=== PATIENT | female | born 1945 | race Asian ===

== ENCOUNTER 2019-05-22 20:34 | Emergency (ER) | payer MEDICARE, BC ==
[~2019-05-22] VITALS: Ht 142.2 cm; Wt 48.5 kg
--- NOTE | 2019-05-22 20:50 | NUR ---
PATIENT CAME TO ER BED 2 C/O SHORTNESS OF BREATH. PATIENT STATES THAT SHE HAS BEEN HAVING SHORTNESS OF BREATH SINCE WEDNESDAY WITH NO DRY COUGH. PATIENT DENIES HAVING ANY FEVER PRIOR TO WEDNESDAY. AAOX4. BREATHING EVENLY AND UNLABORED. CONNECTED TO MONITOR.
--- NOTE | 2019-05-22 21:10 | NUR ---
XRAY AT BEDSIDE
--- NOTE | 2019-05-22 21:18 | NUR ---
BLOOD DRAWN AND SENT TO THE LAB FOR TESTING.
[2019-05-22 21:21] LABS: BASOPHILS % (AUTO) 0.8 % (0.0-2.0); EOSINOPHILS % (AUTO) 4.5 % (0.0-6.0); HEMATOCRIT 40 % (33-45); HEMOGLOBIN 13.2 g/dL (11.5-14.8); LYMPHOCYTES # (AUTO) 1.3 /CMM (0.8-4.8); LYMPHOCYTES % (AUTO) 28.9 % (20.0-44.0); MEAN CORPUSCULAR HGB CONC 33 g/dl (31.0-36.0); MEAN CORPUSCULAR VOLUME 85 fL (82-100); MONOCYTES # (AUTO) 0.4 /CMM (0.1-1.30); MONOCYTES % (AUTO) 9.3 % (2.0-12.0); NEUTROPHILS # (AUTO) 2.6 /CMM (1.8-8.9); NEUTROPHILS % (AUTO) 56.5 % (43.0-81.0); PLATELET COUNT (AUTO) 180 /CMM (150-450); RED BLOOD CELL COUNT(AUTO) 4.69 MIL/uL (4.0-5.2); WHITE BLOOD COUNT (AUTO) 4.5 K/uL (4.3-11.0)
[2019-05-22 21:30] LABS: CALCIUM, SERUM 8.6 mg/dL (8.5-10.1); CARBON DIOXIDE 30 mmol/L (21-32); CHLORIDE 101 mmol/L (98-107); CREATININE 0.9 mg/dL (0.6-1.3); GLUCOSE 100 mg/dL (74-106); POTASSIUM 3.5 mmol/L (3.5-5.1); SODIUM SERUM 137 mmol/L (136-145); UREA NITROGEN, BLOOD 13 mg/dL (7-18)
[2019-05-22 21:43] LABS: B-TYPE NATRIURETIC PEPTIDE 1345 PG/ML (0-125)
[2019-05-22 22:28] VITALS: BP 131/73
--- NOTE | 2019-05-22 22:29 | NUR ---
IV removed. Catheter intact and site benign. Pressure and 4x4 applied to site. No bleeding noted.
--- NOTE | 2019-05-22 22:29 | NUR ---
Patient discharged to home in stable condition. Written and verbal after care instructions given. Patient verbalizes understanding of instruction.
== END 2019-05-22 22:29 | disposition home or self-care (01) ==
LOC: ER 20:38
DX: R06.02 Shortness of breath (principal); I10 Essential (primary) hypertension; I48.91 Unspecified atrial fibrillation; Z88.8 Allergy status to other drugs, medicaments and biological substances
CPT/HCPCS: 36415; 71045-TC; 80048-TC; 83735-TC; 83880; 84484-TC; 85025-TC; 85730-TC

== ENCOUNTER 2020-08-04 06:12 | Emergency (ER) | payer MEDICARE, BC ==
[~2020-08-04] VITALS: Ht 142.2 cm; Wt 49.4 kg
[2020-08-04 06:12] VITALS: BP 132/82
[2020-08-04] MEDS ORDERED: BETA15CR4 TP (06:34)
[2020-08-04] MEDS ORDERED: METH4TAB3 PO (06:34)
== END 2020-08-04 06:30 | disposition home or self-care (01) ==
LOC: ER 06:15
DX: S20.369A Insect bite (nonvenomous) of unspecified front wall of thorax, initial encounter (principal); S80.862A Insect bite (nonvenomous), left lower leg, initial encounter; S80.861A Insect bite (nonvenomous), right lower leg, initial encounter; I10 Essential (primary) hypertension; I48.91 Unspecified atrial fibrillation; Z88.6 Allergy status to analgesic agent; Z79.899 Other long term (current) drug therapy; W57.XXXA Bitten or stung by nonvenomous insect and other nonvenomous arthropods, initial encounter; Y93.89 Activity, other specified; Y92.89 Other specified places as the place of occurrence of the external cause; Y99.8 Other external cause status

== ENCOUNTER 2023-09-22 19:34 | Emergency (ER) | payer MEDICARE, BC ==
[~2023-09-22 19:34] MED LIST: BETA15CR4 TP; METH4TAB3 PO
== END 2023-09-22 21:48 | disposition left against medical advice (07) ==
LOC: ER 19:54
DX: R53.1 Weakness (principal); Z53.21 Procedure and treatment not carried out due to patient leaving prior to being seen by health care provider

== ENCOUNTER 2024-02-24 00:22 | Inpatient (IN) | payer MEDICARE, BC ==
[~2024-02-24] VITALS: Ht 152.4 cm; Wt 63.5 kg
[2024-02-24] MEDS ORDERED: NITROGLYCERIN 0.4 MG/TAB BOTTLE ONE (00:54)
[2024-02-24] MEDS ORDERED: ASPIRIN 325 MG TABLET ONE (00:54)
[2024-02-24] MEDS: ASPIRIN 325 MG TABLET PO ONE (00:58)
[2024-02-24] MEDS: NITROGLYCERIN 0.4 MG/TAB BOTTLE SL ONE (00:59)
[2024-02-24 01:19] LABS: BASOPHILS % (AUTO) 0.9 % (0.0-2.0); EOSINOPHILS # (AUTO) 0.4 K/uL (0.0-0.7); EOSINOPHILS % (AUTO) 8.6 % (0.0-6.0); HEMATOCRIT 40 % (33-45); LYMPHOCYTES # (AUTO) 1.6 K/uL (0.8-4.8); LYMPHOCYTES % (AUTO) 32.4 % (20.0-44.0); MEAN CORPUSCULAR HEMOGLOBIN 27 PG (26.0-33.0); MEAN CORPUSCULAR HGB CONC 33 g/dl (31.0-36.0); MEAN CORPUSCULAR VOLUME 82 fL (82-100); MONOCYTES # (AUTO) 0.4 K/uL (0.1-1.30); MONOCYTES % (AUTO) 8.1 % (2.0-12.0); NEUTROPHILS # (AUTO) 2.5 K/uL (1.8-8.9); PLATELET COUNT (AUTO) 210 K/uL (150-450); WHITE BLOOD COUNT (AUTO) 5.1 K/uL (4.3-11.0)
[2024-02-24 01:23] LABS: CALCIUM, SERUM 8.5 mg/dL (8.5-10.1); CREATININE 0.9 mg/dL (0.6-1.3); POTASSIUM 3.4 mmol/L (3.5-5.1)
[2024-02-24 01:29] LABS: ALBUMIN 3.4 g/dL (3.4-5.0); BILIRUBIN,DIRECT 0.1 mg/dL (0.0-0.2); BILIRUBIN,TOTAL 0.2 mg/dL (0.2-1.0); TOTAL PROTEIN, SERUM 7.5 g/dL (6.4-8.2)
[2024-02-24] MEDS ORDERED: MORPHINE SULFATE INJ 2 MG/ML DISP.SYRIN ONE (04:34)
[2024-02-24] MEDS: MORPHINE SULFATE INJ 2 MG/ML DISP.SYRIN IV ONE (04:37)
[2024-02-24] MEDS ORDERED: MORPHINE SULFATE INJ 2 MG/ML DISP.SYRIN IV PRN (05:00)
[2024-02-24] MEDS ORDERED: NITROGLYCERIN 0.4 MG/TAB BOTTLE SL PRN (05:00)
[2024-02-24] MEDS ORDERED: ACETAMINOPHEN 325 MG TABLET PO PRN (05:00)
[2024-02-24] MEDS ORDERED: MAGNESIUM HYDROXIDE 30 ML UDC PO PRN (05:00)
[2024-02-24] MEDS ORDERED: MAG HYDROX/AL HYDROX/SIMETH 30 ML UDC PO PRN (05:00)
[2024-02-24] MEDS ORDERED: Z GUARD REMEDY 4 OZ OINT TP PRN (05:00)
[2024-02-24] MEDS ORDERED: PANTOPRAZOLE 40 MG TABLET.DR PO ONE (08:18)
[2024-02-24] MEDS: PANTOPRAZOLE 40 MG TABLET.DR PO SCH (08:23)
[2024-02-24] MEDS ORDERED: POTASSIUM CHLORIDE 20 MEQ TAB.PRT.SR PO ONE (09:00)
[2024-02-24] MEDS ORDERED: ENOXAPARIN SODIUM 40 MG/0.4 ML DISP.SYRIN SQ SCH (09:00)
[2024-02-24] MEDS ORDERED: NIFE-35 PO (09:14)
[2024-02-24] MEDS ORDERED: BENZ-38 PO (09:14)
[2024-02-24] MEDS ORDERED: SENN-287 PO (09:14)
[2024-02-24] MEDS ORDERED: GABA-532 PO (09:14)
[2024-02-24] MEDS ORDERED: CHOL100062 PO (09:14)
[2024-02-24] MEDS ORDERED: POTA-58 PO (09:14)
[2024-02-24] MEDS ORDERED: FAMO20TA29 PO (09:14)
[2024-02-24] MEDS ORDERED: MIRABEGRON PO (09:14)
[2024-02-24] MEDS ORDERED: MAGN400T52 PO (09:14)
[2024-02-24] MEDS ORDERED: PRAV40TA3 PO (09:14)
[2024-02-24] MEDS ORDERED: MIRT-90 PO (09:14)
[2024-02-24] MEDS ORDERED: EMPA25TA PO (09:14)
[2024-02-24] MEDS ORDERED: FURO20TA4 PO (09:14)
[2024-02-24] MEDS ORDERED: CALC500T52 PO (09:14)
[2024-02-24] MEDS ORDERED: RIVA15TA PO (09:14)
[2024-02-24 09:34] VITALS: BP 129/69; TEMP 98.1; O2SAT 97
== END 2024-02-24 09:34 | disposition left against medical advice (07) | DRG 311 ==
LOC: ER 00:22 → OBSER 04:52 → TRANSITION 08:01
PROVIDERS: ADMIT Nurse Practitioner Acute Care; ATTEND Nurse Practitioner Acute Care
DX: I24.9 Acute ischemic heart disease, unspecified (principal); I48.20 Chronic atrial fibrillation, unspecified; I69.354 Hemiplegia and hemiparesis following cerebral infarction affecting left non-dominant side; I10 Essential (primary) hypertension; Z79.01 Long term (current) use of anticoagulants; Z53.29 Procedure and treatment not carried out because of patient's decision for other reasons; E87.6 Hypokalemia
CPT/HCPCS: 36415; 71045-TC; 80048-TC; 80076-TC; 84484-TC; 85025-TC; G0378; J2270

== ENCOUNTER 2024-04-04 17:02 | Inpatient (IN) | payer MEDICARE, BC ==
[~2024-04-04] VITALS: Ht 167.6 cm; Wt 47.6 kg
[~2024-04-04 17:02] MED LIST changes: +BENZ-38 PO; -BETA15CR4 TP; +CALC500T52 PO; +CHOL100062 PO; +EMPA25TA PO; +FAMO20TA29 PO; +FURO20TA4 PO; +GABA-532 PO; +MAGN400T52 PO; -METH4TAB3 PO; +MIRABEGRON PO; +MIRT-90 PO; +NIFE-35 PO; +POTA-58 PO; +PRAV40TA3 PO; +RIVA15TA PO; +SENN-287 PO
[2024-04-04 17:27] LABS: BASOPHILS % (AUTO) 0.3 % (0.0-2.0); EOSINOPHILS % (AUTO) 0.4 % (0.0-6.0); HEMATOCRIT 40 % (33-45); HEMOGLOBIN 13.2 g/dL (11.5-14.8); LYMPHOCYTES # (AUTO) 1.4 K/uL (0.8-4.8); MEAN CORPUSCULAR HEMOGLOBIN 28 PG (26.0-33.0); MEAN CORPUSCULAR HGB CONC 34 g/dl (31.0-36.0); MEAN CORPUSCULAR VOLUME 84 fL (82-100); MONOCYTES # (AUTO) 0.7 K/uL (0.1-1.30); MONOCYTES % (AUTO) 7.5 % (2.0-12.0); NEUTROPHILS # (AUTO) 7.2 K/uL (1.8-8.9); NEUTROPHILS % (AUTO) 76.8 % (43.0-81.0); PLATELET COUNT (AUTO) 230 K/uL (150-450); RED BLOOD CELL COUNT(AUTO) 4.71 MIL/uL (4.0-5.2); RED CELL DISTRIBUTION WIDTH 15.6 % (11.5-15.0); WHITE BLOOD COUNT (AUTO) 9.4 K/uL (4.3-11.0)
[2024-04-04 17:46] LABS: ALANINE AMINOTRANSFERASE 24 U/L (12-78); ALBUMIN 3.6 g/dL (3.4-5.0); ALKALINE PHOSPHATASE 45 U/L (46-116); ASPARTATE AMINOTRANSFERASE 20 U/L (15-37); BILIRUBIN,DIRECT 0.1 mg/dL (0.0-0.2); BILIRUBIN,TOTAL 0.2 mg/dL (0.2-1.0); CALCIUM, SERUM 8.5 mg/dL (8.5-10.1); CARBON DIOXIDE 31 mmol/L (21-32); CHLORIDE 103 mmol/L (98-107); CREATININE 1.2 mg/dL (0.6-1.3); GLUCOSE 80 mg/dL (74-106); POTASSIUM 3.9 mmol/L (3.5-5.1); SODIUM SERUM 139 mmol/L (136-145); TOTAL PROTEIN, SERUM 7.7 g/dL (6.4-8.2); UREA NITROGEN, BLOOD 36 mg/dL (7-18)
[2024-04-04] MEDS ORDERED: MAG HYDROX/AL HYDROX/SIMETH 30 ML UDC PO PRN (18:30)
[2024-04-04] MEDS ORDERED: ONDANSETRON HCL/PF 4 MG/2 ML VIAL IVP PRN (18:30)
[2024-04-04] MEDS ORDERED: MAGNESIUM HYDROXIDE 30 ML UDC PO PRN (18:30)
[2024-04-04] MEDS ORDERED: Z GUARD REMEDY 4 OZ OINT TP PRN (18:30)
[2024-04-04] MEDS ORDERED: ASPIRIN 325 MG TABLET ONE (18:51)
[2024-04-04] MEDS: ASPIRIN 325 MG TABLET PO ONE (18:55)
[2024-04-04 20:00] VITALS: BP 140/69; TEMP 97.9; O2SAT 100
[2024-04-04] MEDS: MIRTAZAPINE 15 MG TABLET PO SCH (21:19)
[2024-04-04] MEDS: GABAPENTIN 100 MG CAPSULE PO SCH (21:20)
[2024-04-05] VITALS: BP 134/76; TEMP 97.7; O2SAT 100
[2024-04-05 04:00] VITALS: BP 135/70; TEMP 98.1; O2SAT 96
[2024-04-05 06:43] LABS: BASOPHILS % (AUTO) 0.5 % (0.0-2.0); EOSINOPHILS # (AUTO) 0.1 K/uL (0.0-0.7); EOSINOPHILS % (AUTO) 1.9 % (0.0-6.0); HEMATOCRIT 39 % (33-45); HEMOGLOBIN 12.8 g/dL (11.5-14.8); LYMPHOCYTES # (AUTO) 2.3 K/uL (0.8-4.8); LYMPHOCYTES % (AUTO) 30.4 % (20.0-44.0); MEAN CORPUSCULAR HEMOGLOBIN 28 PG (26.0-33.0); MEAN CORPUSCULAR HGB CONC 33 g/dl (31.0-36.0); MEAN CORPUSCULAR VOLUME 85 fL (82-100); MONOCYTES # (AUTO) 0.7 K/uL (0.1-1.30); MONOCYTES % (AUTO) 8.9 % (2.0-12.0); NEUTROPHILS # (AUTO) 4.5 K/uL (1.8-8.9); NEUTROPHILS % (AUTO) 58.3 % (43.0-81.0); PLATELET COUNT (AUTO) 209 K/uL (150-450); RED BLOOD CELL COUNT(AUTO) 4.58 MIL/uL (4.0-5.2); RED CELL DISTRIBUTION WIDTH 15.5 % (11.5-15.0); WHITE BLOOD COUNT (AUTO) 7.7 K/uL (4.3-11.0)
[2024-04-05 07:08] LABS: CALCIUM, SERUM 8.1 mg/dL (8.5-10.1); CREATININE 0.9 mg/dL (0.6-1.3); MAGNESIUM 2.5 mg/dL (1.8-2.4); PHOSPHORUS 3.8 mg/dL (2.5-4.9); POTASSIUM 3.3 mmol/L (3.5-5.1)
[2024-04-05 08:00] VITALS: BP 134/86; TEMP 97.9; O2SAT 100
[2024-04-05] MEDS ORDERED: NITROGLYCERIN 0.4 MG/TAB BOTTLE ONE (08:38)
[2024-04-05] MEDS ORDERED: IOHEXOL-350 100 ML VIAL IV ONE (08:38)
[2024-04-05] MEDS ORDERED: IV NS 0.9% 250 ML IV ONE (08:38)
[2024-04-05] MEDS ORDERED: CT SWABBABLE VALVE TRANS SET 1 EA INFUS.SET MC ONE (08:38)
[2024-04-05] MEDS ORDERED: SENNOSIDES/DOCUSATE SODIUM 1 UDTAB TABLET PO SCH (09:00)
[2024-04-05] MEDS: METOPROLOL TARTRATE 50 MG TABLET PO SCH (09:00)
[2024-04-05] MEDS: NITROGLYCERIN 0.4 MG/TAB BOTTLE SL ONE (09:07)
[2024-04-05] MEDS: CHOLECALCIFEROL 1,000 UNIT TABLET (VIT D3) PO SCH (09:23)
[2024-04-05] MEDS: FUROSEMIDE 20 MG TABLET PO SCH (09:23)
[2024-04-05] MEDS: FAMOTIDINE (20 MG) 20 MG TABLET PO SCH (09:23)
[2024-04-05] MEDS: CALCIUM CARBONATE (1250) 500 MG TABLET PO SCH (09:23)
[2024-04-05] MEDS: ATORVASTATIN 10 MG TABLET PO SCH (09:23)
[2024-04-05] MEDS: RIVAROXABAN 15 MG TABLET PO SCH (09:25)
[2024-04-05] MEDS: NIFEdipine XL (30MG) 30 MG TAB PO SCH (09:27)
[2024-04-05] MEDS: SENNOSIDES/DOCUSATE SODIUM 1 TAB TABLET PO SCH (09:30)
[2024-04-05] MEDS: EMPAGLIFLOZIN 25 MG TABLET PO SCH (09:30)
[2024-04-05] MEDS: POTASSIUM CHLORIDE 20 MEQ TAB.PRT.SR PO SCH (11:26)
[2024-04-05 12:00] VITALS: BP 119/59; TEMP 97.9; O2SAT 98
[2024-04-05 16:00] VITALS: BP 108/73; TEMP 97.9; O2SAT 98
[2024-04-05] MEDS: ACETAMINOPHEN 325 MG TABLET PO PRN (19:00)
[2024-04-05 20:00] VITALS: BP 113/66; TEMP 98.4; O2SAT 100
[2024-04-05] MEDS ORDERED: NITROGLYCERIN 0.4 MG/TAB BOTTLE SL PRN (20:00)
[2024-04-06] VITALS: BP 110/53; TEMP 97.5; O2SAT 100
[2024-04-06 04:00] VITALS: BP 123/73; TEMP 97.6; O2SAT 100
[2024-04-06 07:05] LABS: CALCIUM, SERUM 8.4 mg/dL (8.5-10.1); POTASSIUM 3.6 mmol/L (3.5-5.1)
[2024-04-06 07:44] LABS: BASOPHILS % (AUTO) 0.6 % (0.0-2.0); EOSINOPHILS # (AUTO) 0.3 K/uL (0.0-0.7); EOSINOPHILS % (AUTO) 5.3 % (0.0-6.0); HEMATOCRIT 42 % (33-45); HEMOGLOBIN 13.7 g/dL (11.5-14.8); LYMPHOCYTES # (AUTO) 1.7 K/uL (0.8-4.8); LYMPHOCYTES % (AUTO) 26.6 % (20.0-44.0); MEAN CORPUSCULAR HEMOGLOBIN 28 PG (26.0-33.0); MEAN CORPUSCULAR HGB CONC 33 g/dl (31.0-36.0); MEAN CORPUSCULAR VOLUME 86 fL (82-100); MONOCYTES # (AUTO) 0.7 K/uL (0.1-1.30); MONOCYTES % (AUTO) 10.6 % (2.0-12.0); NEUTROPHILS # (AUTO) 3.6 K/uL (1.8-8.9); NEUTROPHILS % (AUTO) 56.9 % (43.0-81.0); PLATELET COUNT (AUTO) 241 K/uL (150-450); RED BLOOD CELL COUNT(AUTO) 4.84 MIL/uL (4.0-5.2); RED CELL DISTRIBUTION WIDTH 14.9 % (11.5-15.0); WHITE BLOOD COUNT (AUTO) 6.3 K/uL (4.3-11.0)
[2024-04-06 08:00] VITALS: BP 127/92; TEMP 96; O2SAT 100
[2024-04-06] MEDS: COLCHICINE 0.6 MG TABLET PO SCH (09:00)
[2024-04-06] MEDS ORDERED: GABA100C PO (10:53)
[2024-04-06] MEDS ORDERED: Colchicine PO (10:53)
[2024-04-06] MEDS ORDERED: METO50TA16 PO (10:53)
[2024-04-06 12:00] VITALS: BP 114/65; TEMP 97.7; O2SAT 100
== END 2024-04-06 13:30 | disposition home or self-care (01) | DRG 315 ==
LOC: ER 17:04 → TELE1 18:17
PROVIDERS: ADMIT Nurse Practitioner Acute Care; ATTEND Nurse Practitioner Acute Care
DX: I31.39 Other pericardial effusion (noninflammatory) (principal); I48.20 Chronic atrial fibrillation, unspecified; I50.32 Chronic diastolic (congestive) heart failure; I11.0 Hypertensive heart disease with heart failure; E78.5 Hyperlipidemia, unspecified; Z66 Do not resuscitate; Z79.01 Long term (current) use of anticoagulants; Z79.84 Long term (current) use of oral hypoglycemic drugs; Z86.73 Personal history of transient ischemic attack (TIA), and cerebral infarction without residual deficits
CPT/HCPCS: 36415; 71045-TC; 75574; 80048-TC; 80076-TC; 83735-TC; 84100-TC; 84484-TC; 85025-TC; 85652-TC; 93307-TC; 97110-TC; 97116-TC; 97530-TC; G0378; J7050; Q9967

== ENCOUNTER 2024-04-11 08:27 | Emergency (ER) | payer MEDICARE, BC ==
[~2024-04-11] VITALS: Ht 149.9 cm; Wt 37.2 kg
[~2024-04-11 08:27] MED LIST changes: +Colchicine PO; -GABA-532 PO; +GABA100C PO; +METO50TA16 PO
[2024-04-11] MEDS: IV NS 0.9% 500 ML BAG IV ONE (09:00)
[2024-04-11 09:20] LABS: BASOPHILS % (AUTO) 0.3 % (0.0-2.0); EOSINOPHILS # (AUTO) 0.3 K/uL (0.0-0.7); EOSINOPHILS % (AUTO) 3.3 % (0.0-6.0); HEMATOCRIT 46 % (33-45); HEMOGLOBIN 14.2 g/dL (11.5-14.8); LYMPHOCYTES % (AUTO) 12.7 % (20.0-44.0); MEAN CORPUSCULAR HEMOGLOBIN 27 PG (26.0-33.0); MEAN CORPUSCULAR HGB CONC 31 g/dl (31.0-36.0); MEAN CORPUSCULAR VOLUME 88 fL (82-100); MONOCYTES # (AUTO) 0.6 K/uL (0.1-1.30); MONOCYTES % (AUTO) 7.3 % (2.0-12.0); NEUTROPHILS # (AUTO) 6.1 K/uL (1.8-8.9); NEUTROPHILS % (AUTO) 76.4 % (43.0-81.0); PLATELET COUNT (AUTO) 250 K/uL (150-450); RED BLOOD CELL COUNT(AUTO) 5.21 MIL/uL (4.0-5.2); RED CELL DISTRIBUTION WIDTH 15.8 % (11.5-15.0)
[2024-04-11 09:21] LABS: CALCIUM, SERUM 8.7 mg/dL (8.5-10.1); CREATININE 0.9 mg/dL (0.6-1.3); POTASSIUM 3.9 mmol/L (3.5-5.1)
[2024-04-11 12:21] VITALS: BP 120/79; TEMP 98.5; O2SAT 97
== END 2024-04-11 11:50 | disposition home or self-care (01) ==
LOC: ER 08:30
DX: R42 Dizziness and giddiness (principal); I10 Essential (primary) hypertension; I48.91 Unspecified atrial fibrillation; Z79.01 Long term (current) use of anticoagulants; Z79.84 Long term (current) use of oral hypoglycemic drugs; Z79.899 Other long term (current) drug therapy; Z86.73 Personal history of transient ischemic attack (TIA), and cerebral infarction without residual deficits
CPT/HCPCS: 36415; 80048-TC; 85025-TC; J7040

== ENCOUNTER 2024-05-09 07:28 | Inpatient (IN) | payer MEDICARE, BC ==
[~2024-05-09] VITALS: Ht 170.2 cm; Wt 49.9 kg
[2024-05-09] MEDS ORDERED: FAMOTIDINE/PF INJ 20 MG/2 ML VIAL IV ONE (08:04)
[2024-05-09] MEDS ORDERED: ONDANSETRON HCL/PF 4 MG/2 ML VIAL ONE ×2 (08:04→09:30)
[2024-05-09] MEDS ORDERED: MAG HYDROX/AL HYDROX/SIMETH 30 ML UDC ONE (08:04)
[2024-05-09] MEDS: IV NS 0.9% 500 ML BAG IV ONE (08:10)
[2024-05-09] MEDS: ONDANSETRON HCL/PF 4 MG/2 ML VIAL IVP ONE ×2 (08:11→09:42)
[2024-05-09] MEDS: FAMOTIDINE/PF INJ 20 MG/2 ML VIAL IV ONE (08:11)
[2024-05-09 08:16] LABS: BASOPHILS # (AUTO) 0.1 K/uL (0.0-0.2); BASOPHILS % (AUTO) 0.5 % (0.0-2.0); EOSINOPHILS # (AUTO) 0.3 K/uL (0.0-0.7); EOSINOPHILS % (AUTO) 2.6 % (0.0-6.0); HEMATOCRIT 43 % (33-45); HEMOGLOBIN 14.2 g/dL (11.5-14.8); LYMPHOCYTES # (AUTO) 1.1 K/uL (0.8-4.8); LYMPHOCYTES % (AUTO) 10.2 % (20.0-44.0); MEAN CORPUSCULAR HEMOGLOBIN 27 PG (26.0-33.0); MEAN CORPUSCULAR HGB CONC 33 g/dl (31.0-36.0); MEAN CORPUSCULAR VOLUME 83 fL (82-100); MONOCYTES # (AUTO) 0.2 K/uL (0.1-1.30); MONOCYTES % (AUTO) 2.2 % (2.0-12.0); NEUTROPHILS # (AUTO) 9.1 K/uL (1.8-8.9); NEUTROPHILS % (AUTO) 84.5 % (43.0-81.0); PLATELET COUNT (AUTO) 169 K/uL (150-450); RED BLOOD CELL COUNT(AUTO) 5.18 MIL/uL (4.0-5.2); RED CELL DISTRIBUTION WIDTH 14.3 % (11.5-15.0); WHITE BLOOD COUNT (AUTO) 10.8 K/uL (4.3-11.0)
[2024-05-09 08:21] LABS: CARBON DIOXIDE 26 mmol/L (21-32); CHLORIDE 104 mmol/L (98-107); CREATININE 0.9 mg/dL (0.6-1.3); GLUCOSE 97 mg/dL (74-106); SODIUM SERUM 139 mmol/L (136-145); UREA NITROGEN, BLOOD 19 mg/dL (7-18)
[2024-05-09 08:26] LABS: ALANINE AMINOTRANSFERASE 22 U/L (12-78); ALBUMIN 3.8 g/dL (3.4-5.0); ALKALINE PHOSPHATASE 55 U/L (46-116); ASPARTATE AMINOTRANSFERASE 35 U/L (15-37); BILIRUBIN,DIRECT 0.1 mg/dL (0.0-0.2); BILIRUBIN,TOTAL 0.5 mg/dL (0.2-1.0); LIPASE 30 U/L (16-77); TOTAL PROTEIN, SERUM 7.7 g/dL (6.4-8.2)
[2024-05-09] MEDS: MAG HYDROX/AL HYDROX/SIMETH 30 ML UDC PO ONE (08:33)
[2024-05-09] MEDS ORDERED: MORPHINE SULFATE INJ 4 MG/ML DISP.SYRIN ONE (09:31)
[2024-05-09] MEDS ORDERED: PIPERACI/TAZO 3.375GM/D5W 50ML PB IV ONE (09:31)
[2024-05-09] MEDS: MORPHINE SULFATE INJ 2 MG/ML DISP.SYRIN IV ONE (09:42)
[2024-05-09] MEDS: PIPERACILLIN /TAZOBACTAM 3.375 G in IV D5W 50 ML IV ONE (09:42)
[2024-05-09] MEDS ORDERED: ONDANSETRON HCL/PF 4 MG/2 ML VIAL IVP PRN (11:00)
[2024-05-09] MEDS ORDERED: Z GUARD REMEDY 4 OZ OINT TP PRN (11:00)
[2024-05-09] MEDS ORDERED: MAGNESIUM HYDROXIDE 30 ML UDC PO PRN (11:00)
[2024-05-09 12:00] VITALS: BP 137/70; TEMP 97.7; O2SAT 100
[2024-05-09] MEDS: IV NS 0.9% 1,000 ML IV PRN (14:45)
[2024-05-09 16:00] VITALS: BP 151/89; TEMP 99.1; O2SAT 99
[2024-05-09] MEDS: ZOSYN IVPB 2.25 G in IV D5W 50ml IV SCH (16:21)
[2024-05-09] MEDS: SENNOSIDES/DOCUSATE SODIUM 1 TAB TABLET PO SCH (17:00)
[2024-05-09] MEDS: NIFEdipine XL (30MG) 30 MG TAB PO SCH (17:22)
[2024-05-09] MEDS: FUROSEMIDE 20 MG TABLET PO SCH (17:22)
[2024-05-09 20:00] VITALS: BP 150/86; TEMP 98.8; O2SAT 99
[2024-05-09] MEDS: METOPROLOL TARTRATE 50 MG TABLET PO SCH (20:05)
[2024-05-09] MEDS: ACETAMINOPHEN 325 MG TABLET PO PRN (20:06)
[2024-05-09] MEDS: GABAPENTIN 100 MG CAPSULE PO SCH (22:07)
[2024-05-10 07:00] LABS: BASOPHILS % (AUTO) 0.2 % (0.0-2.0); EOSINOPHILS % (AUTO) 0.5 % (0.0-6.0); HEMATOCRIT 39 % (33-45); HEMOGLOBIN 13.1 g/dL (11.5-14.8); LYMPHOCYTES # (AUTO) 0.7 K/uL (0.8-4.8); LYMPHOCYTES % (AUTO) 7.5 % (20.0-44.0); MEAN CORPUSCULAR HEMOGLOBIN 28 PG (26.0-33.0); MEAN CORPUSCULAR HGB CONC 33 g/dl (31.0-36.0); MEAN CORPUSCULAR VOLUME 83 fL (82-100); MONOCYTES # (AUTO) 0.5 K/uL (0.1-1.30); MONOCYTES % (AUTO) 5.5 % (2.0-12.0); NEUTROPHILS # (AUTO) 7.7 K/uL (1.8-8.9); NEUTROPHILS % (AUTO) 86.3 % (43.0-81.0); PLATELET COUNT (AUTO) 175 K/uL (150-450); RED BLOOD CELL COUNT(AUTO) 4.72 MIL/uL (4.0-5.2); WHITE BLOOD COUNT (AUTO) 8.9 K/uL (4.3-11.0)
[2024-05-10 07:07] LABS: CALCIUM, SERUM 7.8 mg/dL (8.5-10.1); POTASSIUM 3.3 mmol/L (3.5-5.1)
[2024-05-10 07:08] LABS: INR 1.1 (0.91-1.10); MAGNESIUM 2.3 mg/dL (1.8-2.4); PARTIAL THROMBOPLASTIN TIME 30.8 SEC (24.3-34.3); PHOSPHORUS 3.4 mg/dL (2.5-4.9); PROTHROMBIN TIME 11.6 SECS (9.2-11.1)
[2024-05-10 08:00] VITALS: BP 131/72; TEMP 98.1; O2SAT 100
[2024-05-10] MEDS: MORPHINE SULFATE INJ 2 MG/ML DISP.SYRIN IV PRN (08:27)
[2024-05-10] MEDS ORDERED: BACITRACIN ZINC OINT (15 GM) 15 GM TUBE TP ONE (10:17)
[2024-05-10] MEDS ORDERED: BUPIVACAINE 0.5 % PF 150 MG/30 ML VIAL ONE (10:17)
[2024-05-10] MEDS ORDERED: LIDOCAINE 1%-EPI 1:100,000 20 ML VIAL ONE (10:17)
[2024-05-10] MEDS ORDERED: FENTANYL PF 100MCG/2ML AMPUL ONE (10:35)
[2024-05-10] MEDS ORDERED: MIDAZOLAM HCL 2 MG/2ML VIAL ONE (10:35)
[2024-05-10 13:15] VITALS: BP 119/73; TEMP 98.5; O2SAT 95
[2024-05-10] MEDS ORDERED: HYDROMORPHONE 1 MG/1 ML DISP.SYRIN IV PRN (13:30)
[2024-05-10] MEDS: IV LR 1000 ML 1,000 ML IV PRN (13:50)
[2024-05-10 16:00] VITALS: BP 102/64; TEMP 97.8; O2SAT 94
[2024-05-10] MEDS: POTASSIUM CHLORIDE 20 MEQ TAB.PRT.SR PO SCH (16:27)
[2024-05-10 20:00] VITALS: BP 105/65; TEMP 97.7; O2SAT 97
[2024-05-11 06:48] LABS: CALCIUM, SERUM 7.1 mg/dL (8.5-10.1); CREATININE 0.9 mg/dL (0.6-1.3); MAGNESIUM 2.2 mg/dL (1.8-2.4); PHOSPHORUS 3.5 mg/dL (2.5-4.9)
[2024-05-11 08:00] VITALS: BP 114/63; TEMP 97.9; O2SAT 98
[2024-05-11] MEDS: RIVAROXABAN 15 MG TABLET PO SCH (09:27)
[2024-05-11 16:00] VITALS: BP 102/61; TEMP 97.5; O2SAT 97
[2024-05-11 20:00] VITALS: BP 124/75; TEMP 97.9; O2SAT 95
[2024-05-11] MEDS: MAG HYDROX/AL HYDROX/SIMETH 30 ML UDC PO PRN (20:32)
[2024-05-12 06:53] LABS: BASOPHILS % (AUTO) 0.5 % (0.0-2.0); EOSINOPHILS # (AUTO) 0.2 K/uL (0.0-0.7); EOSINOPHILS % (AUTO) 2.9 % (0.0-6.0); HEMATOCRIT 39 % (33-45); HEMOGLOBIN 12.6 g/dL (11.5-14.8); LYMPHOCYTES % (AUTO) 15.1 % (20.0-44.0); MEAN CORPUSCULAR HEMOGLOBIN 27 PG (26.0-33.0); MEAN CORPUSCULAR HGB CONC 33 g/dl (31.0-36.0); MEAN CORPUSCULAR VOLUME 84 fL (82-100); MONOCYTES # (AUTO) 0.4 K/uL (0.1-1.30); MONOCYTES % (AUTO) 6.3 % (2.0-12.0); NEUTROPHILS # (AUTO) 5.2 K/uL (1.8-8.9); NEUTROPHILS % (AUTO) 75.2 % (43.0-81.0); PLATELET COUNT (AUTO) 189 K/uL (150-450); RED BLOOD CELL COUNT(AUTO) 4.64 MIL/uL (4.0-5.2); RED CELL DISTRIBUTION WIDTH 14.2 % (11.5-15.0); WHITE BLOOD COUNT (AUTO) 6.9 K/uL (4.3-11.0)
[2024-05-12 07:10] LABS: CALCIUM, SERUM 7.6 mg/dL (8.5-10.1); CREATININE 0.7 mg/dL (0.6-1.3); POTASSIUM 3.3 mmol/L (3.5-5.1)
[2024-05-12 08:00] VITALS: BP 133/82; TEMP 98.6; O2SAT 98
[2024-05-12] MEDS: HYDROCODONE/APAP 10/325MG TABLET PO PRN (08:07)
[2024-05-12 08:08] VITALS: BP 133/82
[2024-05-12] MEDS: POTASSIUM CHLORIDE 20 MEQ TAB.PRT.SR PO SCH (09:24)
[2024-05-12] MEDS ORDERED: IBUP-1957 PO (11:10)
[2024-05-13] MEDS ORDERED: HYDR-3972 PO (00:58)
== END 2024-05-12 15:48 | disposition home health service (06) | DRG 336 ==
LOC: ER 07:56 → MED 10:53
PROVIDERS: ADMIT Internal Medicine; ATTEND Internal Medicine
PROC: 0DN84ZZ Release Small Intestine, Percutaneous Endoscopic Approach (ICD-10-PCS; 2024-05-10)
PROC: 0DTJ4ZZ Resection of Appendix, Percutaneous Endoscopic Approach (ICD-10-PCS; principal; 2024-05-10 11:00)
DX: K35.30 Acute appendicitis with localized peritonitis, without perforation or gangrene (principal); I31.39 Other pericardial effusion (noninflammatory); I48.91 Unspecified atrial fibrillation; Z86.73 Personal history of transient ischemic attack (TIA), and cerebral infarction without residual deficits; Z79.01 Long term (current) use of anticoagulants; G62.9 Polyneuropathy, unspecified; K66.0 Peritoneal adhesions (postprocedural) (postinfection); Z87.11 Personal history of peptic ulcer disease; Z90.49 Acquired absence of other specified parts of digestive tract; I10 Essential (primary) hypertension; Z79.84 Long term (current) use of oral hypoglycemic drugs; E78.5 Hyperlipidemia, unspecified; Z88.8 Allergy status to other drugs, medicaments and biological substances; Z79.899 Other long term (current) drug therapy; Z86.79 Personal history of other diseases of the circulatory system
CPT/HCPCS: 36415; 71045-TC; 80048-TC; 80076-TC; 83690-TC; 83735-TC; 84100-TC; 84484-TC; 85025-TC; 85610-TC; 85730-TC; 86850-TC; 87081-TC; 93307-TC; 97110-TC; 97116-TC; 97530-TC; A4223; G0378; J0330; J0690; J1100; J1885; J2250; J2270; J2405; J2543; J2704; J3010; J3490; J7030; J7050; J7060; J7120

== ENCOUNTER 2024-05-13 00:40 | Emergency (ER) | payer MEDICARE, BC ==
[~2024-05-13] VITALS: Ht 152.4 cm; Wt 54.4 kg
[~2024-05-13 00:40] MED LIST changes: +IBUP-1957 PO
[2024-05-13] MEDS ORDERED: HYDR-3972 PO (00:58)
[2024-05-13] MEDS ORDERED: HYDROCODONE/APAP 5/325MG TABLET ONE (01:03)
[2024-05-13] MEDS: HYDROCODONE/APAP 5/325MG TABLET PO ONE (01:55)
[2024-05-13 01:58] VITALS: BP 145/81; TEMP 97.7; O2SAT 99
== END 2024-05-13 01:59 | disposition home or self-care (01) ==
LOC: ER 00:51
DX: G89.18 Other acute postprocedural pain (principal); I10 Essential (primary) hypertension; I48.91 Unspecified atrial fibrillation; Z79.01 Long term (current) use of anticoagulants; Z79.84 Long term (current) use of oral hypoglycemic drugs; Z79.899 Other long term (current) drug therapy; Z86.73 Personal history of transient ischemic attack (TIA), and cerebral infarction without residual deficits

== ENCOUNTER 2024-05-24 04:55 | Inpatient (IN) | payer MEDICARE, BC ==
[~2024-05-24] VITALS: Ht 139.7 cm; Wt 49.9 kg
[~2024-05-24 04:55] MED LIST changes: +HYDR-3972 PO
[2024-05-24 06:16] LABS: BASOPHILS % (AUTO) 0.3 % (0.0-2.0); HEMATOCRIT 46 % (33-45); HEMOGLOBIN 14.7 g/dL (11.5-14.8); LYMPHOCYTES # (AUTO) 0.6 K/uL (0.8-4.8); LYMPHOCYTES % (AUTO) 3.3 % (20.0-44.0); MEAN CORPUSCULAR HEMOGLOBIN 27 PG (26.0-33.0); MEAN CORPUSCULAR HGB CONC 32 g/dl (31.0-36.0); MEAN CORPUSCULAR VOLUME 84 fL (82-100); MONOCYTES # (AUTO) 0.6 K/uL (0.1-1.30); MONOCYTES % (AUTO) 3.2 % (2.0-12.0); NEUTROPHILS # (AUTO) 17.8 K/uL (1.8-8.9); NEUTROPHILS % (AUTO) 93.2 % (43.0-81.0); PLATELET COUNT (AUTO) 281 K/uL (150-450); RED BLOOD CELL COUNT(AUTO) 5.52 MIL/uL (4.0-5.2); RED CELL DISTRIBUTION WIDTH 13.9 % (11.5-15.0); WHITE BLOOD COUNT (AUTO) 19.1 K/uL (4.3-11.0)
[2024-05-24 06:23] LABS: CALCIUM, SERUM 9.8 mg/dL (8.5-10.1); CREATININE 1.1 mg/dL (0.6-1.3); POTASSIUM 3.6 mmol/L (3.5-5.1)
[2024-05-24 06:29] LABS: BILIRUBIN,TOTAL 0.6 mg/dL (0.2-1.0); TOTAL PROTEIN, SERUM 8.1 g/dL (6.4-8.2)
[2024-05-24] MEDS ORDERED: ONDANSETRON HCL/PF 4 MG/2 ML VIAL ONE (07:14)
[2024-05-24] MEDS ORDERED: MORPHINE SULFATE INJ 2 MG/ML DISP.SYRIN ONE (07:15)
[2024-05-24] MEDS: IV NS 0.9% 1,000 ML IV ONE (07:27)
[2024-05-24] MEDS: ONDANSETRON HCL/PF - ER 4 MG/2 ML VIAL IV ONE (07:27)
[2024-05-24] MEDS: MORPHINE SULFATE INJ 2 MG/ML DISP.SYRIN IV ONE (07:27)
[2024-05-24] MEDS ORDERED: Z GUARD REMEDY 4 OZ OINT TP PRN (10:00)
[2024-05-24] MEDS ORDERED: ACETAMINOPHEN 325 MG TABLET PO PRN (10:00)
[2024-05-24] MEDS ORDERED: MAG HYDROX/AL HYDROX/SIMETH 30 ML UDC PO PRN (10:00)
[2024-05-24] MEDS ORDERED: BENZONATATE 100 MG CAPSULE PO PRN (10:00)
[2024-05-24] MEDS ORDERED: MAGNESIUM HYDROXIDE 30 ML UDC PO PRN (10:00)
[2024-05-24] MEDS ORDERED: HYDROCODONE/APAP 5/325MG TABLET ONE (11:34)
[2024-05-24] MEDS: HYDROCODONE/APAP 5/325MG TABLET PO PRN (11:40)
[2024-05-24] MEDS: ZOSYN IVPB 3.375 G in IV D5W 50ml IV ONE (13:00)
[2024-05-24] MEDS: IV NS 0.9% 1,000 ML IV SCH (16:36)
[2024-05-24] MEDS: PIPERACILLIN /TAZOBACTAM 3.375 G in IV D5W 100 ML IV SCH (16:37)
[2024-05-24] MEDS ORDERED: INSULIN REGULAR, HUMAN 100 UNIT/ML 3 ML VIAL SQ PRN (17:00)
[2024-05-24] MEDS ORDERED: DEXTROSE 50%-WATER 50 ML DISP.SYRIN IV PRN (17:00)
[2024-05-24] MEDS: BLOOD SUGAR DIAGNOSTIC 1 EACH STRIP IN SCH (17:30)
[2024-05-24] MEDS: NIFEdipine XL (30MG) 30 MG TAB PO SCH (18:42)
[2024-05-24] MEDS: SENNOSIDES/DOCUSATE SODIUM 1 TAB TABLET PO SCH (18:42)
[2024-05-24] MEDS: INDOMETHACIN 25 MG CAPSULE PO SCH (18:45)
[2024-05-24 20:00] VITALS: BP 149/88; TEMP 99.7; O2SAT 97
[2024-05-24] MEDS: METOPROLOL TARTRATE 50 MG TABLET PO SCH (21:17)
[2024-05-24] MEDS: GABAPENTIN 100 MG CAPSULE PO SCH (21:29)
[2024-05-24] MEDS: MIRTAZAPINE 15 MG TABLET PO SCH (21:29)
[2024-05-24] MEDS: ONDANSETRON HCL/PF 4 MG/2 ML VIAL IVP PRN (21:44)
[2024-05-25 04:00] VITALS: BP_SYST 100; BP_SYST 99; BP_DIAS 55; BP_DIAS 60; TEMP 98.8; O2SAT 98
[2024-05-25 06:58] LABS: BASOPHILS % (AUTO) 0.2 % (0.0-2.0); EOSINOPHILS # (AUTO) 0.2 K/uL (0.0-0.7); EOSINOPHILS % (AUTO) 1.5 % (0.0-6.0); HEMATOCRIT 35 % (33-45); HEMOGLOBIN 11.7 g/dL (11.5-14.8); LYMPHOCYTES # (AUTO) 1.4 K/uL (0.8-4.8); LYMPHOCYTES % (AUTO) 12.9 % (20.0-44.0); MEAN CORPUSCULAR HEMOGLOBIN 28 PG (26.0-33.0); MEAN CORPUSCULAR HGB CONC 34 g/dl (31.0-36.0); MEAN CORPUSCULAR VOLUME 83 fL (82-100); MONOCYTES # (AUTO) 0.6 K/uL (0.1-1.30); MONOCYTES % (AUTO) 5.8 % (2.0-12.0); NEUTROPHILS # (AUTO) 8.6 K/uL (1.8-8.9); NEUTROPHILS % (AUTO) 79.6 % (43.0-81.0); PLATELET COUNT (AUTO) 237 K/uL (150-450); RED BLOOD CELL COUNT(AUTO) 4.15 MIL/uL (4.0-5.2); RED CELL DISTRIBUTION WIDTH 14.1 % (11.5-15.0); WHITE BLOOD COUNT (AUTO) 10.8 K/uL (4.3-11.0)
[2024-05-25 07:49] LABS: CALCIUM, SERUM 7.8 mg/dL (8.5-10.1); CARBON DIOXIDE 23 mmol/L (21-32); CHLORIDE 102 mmol/L (98-107); CREATININE 1.1 mg/dL (0.6-1.3); GLUCOSE 89 mg/dL (74-106); MAGNESIUM 2.1 mg/dL (1.8-2.4); PHOSPHORUS 2.6 mg/dL (2.5-4.9); POTASSIUM 3.3 mmol/L (3.5-5.1); SODIUM SERUM 134 mmol/L (136-145); UREA NITROGEN, BLOOD 23 mg/dL (7-18)
[2024-05-25 07:51] VITALS: BP 128/66; TEMP 98.4; O2SAT 97
[2024-05-25 08:00] VITALS: BP 102/62; TEMP 97.7; O2SAT 99
[2024-05-25] MEDS ORDERED: MIRABEGRON 50 MG PO SCH (09:00)
[2024-05-25] MEDS ORDERED: COLCHICINE 0.6 MG PO SCH (09:00)
[2024-05-25] MEDS: ATORVASTATIN 10 MG TABLET PO SCH (09:25)
[2024-05-25] MEDS: CALCIUM CARBONATE (1250) 500 MG TABLET PO SCH (09:25)
[2024-05-25] MEDS: PANTOPRAZOLE 40 MG TABLET.DR PO SCH (09:25)
[2024-05-25] MEDS: EMPAGLIFLOZIN 25 MG TABLET PO SCH (09:26)
[2024-05-25] MEDS: RIVAROXABAN 15 MG TABLET PO SCH (09:32)
[2024-05-25] MEDS: POTASSIUM CHLORIDE 20 MEQ TAB.PRT.SR PO SCH (13:06)
[2024-05-25 16:00] VITALS: BP 121/64; TEMP 98.6; O2SAT 100
[2024-05-25] MEDS: GABAPENTIN 100 MG CAPSULE PO SCH (17:35)
[2024-05-25 20:00] VITALS: BP 105/64; TEMP 97.9; O2SAT 98
[2024-05-25 20:32] VITALS: BP 105/64; TEMP 97.9; O2SAT 98
[2024-05-26] MEDS: IV NS 0.9% 1,000 ML IV PRN (01:02)
[2024-05-26 07:13] LABS: CALCIUM, SERUM 7.9 mg/dL (8.5-10.1); CREATININE 0.8 mg/dL (0.6-1.3); PHOSPHORUS 1.9 mg/dL (2.5-4.9); POTASSIUM 3.2 mmol/L (3.5-5.1)
[2024-05-26 07:26] LABS: BASOPHILS % (AUTO) 0.4 % (0.0-2.0); EOSINOPHILS # (AUTO) 0.2 K/uL (0.0-0.7); EOSINOPHILS % (AUTO) 1.8 % (0.0-6.0); HEMATOCRIT 37 % (33-45); HEMOGLOBIN 12.2 g/dL (11.5-14.8); LYMPHOCYTES # (AUTO) 1.4 K/uL (0.8-4.8); LYMPHOCYTES % (AUTO) 12.1 % (20.0-44.0); MEAN CORPUSCULAR HEMOGLOBIN 28 PG (26.0-33.0); MEAN CORPUSCULAR HGB CONC 33 g/dl (31.0-36.0); MEAN CORPUSCULAR VOLUME 84 fL (82-100); MONOCYTES # (AUTO) 0.5 K/uL (0.1-1.30); MONOCYTES % (AUTO) 4.7 % (2.0-12.0); PLATELET COUNT (AUTO) 259 K/uL (150-450); RED BLOOD CELL COUNT(AUTO) 4.41 MIL/uL (4.0-5.2); RED CELL DISTRIBUTION WIDTH 14.2 % (11.5-15.0); WHITE BLOOD COUNT (AUTO) 11.2 K/uL (4.3-11.0)
[2024-05-26 08:00] VITALS: BP 92/48; TEMP 97.9; O2SAT 96
[2024-05-26] MEDS: NEUTRA PHOS 1 POWD.PACKET PO SCH (13:24)
[2024-05-26] MEDS: POTASSIUM CHLORIDE 20 MEQ TAB.PRT.SR PO SCH (13:25)
[2024-05-26 16:25] VITALS: BP 123/81; TEMP 98.8; O2SAT 98
[2024-05-26 20:00] VITALS: BP 131/64; TEMP 97.7; O2SAT 98
[2024-05-26] MEDS: LOPERAMIDE HCL (2 MG CAP) 2 MG CAPSULE PO PRN (21:02)
[2024-05-27 06:59] LABS: BASOPHILS % (AUTO) 0.6 % (0.0-2.0); EOSINOPHILS # (AUTO) 0.3 K/uL (0.0-0.7); EOSINOPHILS % (AUTO) 3.8 % (0.0-6.0); HEMATOCRIT 37 % (33-45); HEMOGLOBIN 12.2 g/dL (11.5-14.8); LYMPHOCYTES # (AUTO) 1.4 K/uL (0.8-4.8); LYMPHOCYTES % (AUTO) 20.3 % (20.0-44.0); MEAN CORPUSCULAR HEMOGLOBIN 28 PG (26.0-33.0); MEAN CORPUSCULAR HGB CONC 33 g/dl (31.0-36.0); MEAN CORPUSCULAR VOLUME 83 fL (82-100); MONOCYTES # (AUTO) 0.5 K/uL (0.1-1.30); MONOCYTES % (AUTO) 7.1 % (2.0-12.0); NEUTROPHILS # (AUTO) 4.8 K/uL (1.8-8.9); NEUTROPHILS % (AUTO) 68.2 % (43.0-81.0); PLATELET COUNT (AUTO) 279 K/uL (150-450); RED BLOOD CELL COUNT(AUTO) 4.44 MIL/uL (4.0-5.2); RED CELL DISTRIBUTION WIDTH 14.1 % (11.5-15.0)
[2024-05-27 07:30] LABS: CALCIUM, SERUM 8.1 mg/dL (8.5-10.1); CREATININE 0.7 mg/dL (0.6-1.3); MAGNESIUM 2.2 mg/dL (1.8-2.4); PHOSPHORUS 2.7 mg/dL (2.5-4.9); POTASSIUM 3.6 mmol/L (3.5-5.1)
[2024-05-27 08:00] VITALS: BP 136/83; TEMP 98.2; O2SAT 99
[2024-05-27] MEDS: RIVAROXABAN 15 MG TABLET PO SCH (09:00)
[2024-05-27] MEDS: BISMUTH SUBSALICYLATE 262 MG/15 ML BOTTLE PO PRN (15:47)
[2024-05-27 16:00] VITALS: BP 114/66; TEMP 98.1; O2SAT 94
[2024-05-27 20:00] VITALS: BP 117/58; TEMP 98.1; O2SAT 97
[2024-05-27] MEDS: HYDROMORPHONE 1 MG/1 ML DISP.SYRIN IV PRN (22:44)
[2024-05-28 07:30] VITALS: BP 123/76; TEMP 97.5; O2SAT 99
[2024-05-28 08:23] VITALS: BP 123/76
[2024-05-28] MEDS ORDERED: LOPE2CAP40 PO (11:50)
[2024-05-28] MEDS ORDERED: CIPR-263 PO (11:50)
[2024-05-28] MEDS ORDERED: INDO-13 PO (11:50)
[2024-05-28] MEDS ORDERED: METR500T PO (11:50)
[2024-05-28] MEDS ORDERED: GABA100C PO (11:50)
== END 2024-05-28 14:00 | DRG 392 ==
LOC: ER 04:57 → MED 11:38 → MS IN 11:49 → MED 14:11 → TELE 22:23 → MED 05-25 09:55
PROVIDERS: ADMIT Nurse Practitioner Acute Care; ATTEND Nurse Practitioner Acute Care
DX: A09 Infectious gastroenteritis and colitis, unspecified (principal); E87.1 Hypo-osmolality and hyponatremia; I31.39 Other pericardial effusion (noninflammatory); I48.20 Chronic atrial fibrillation, unspecified; E86.1 Hypovolemia; G89.4 Chronic pain syndrome; I10 Essential (primary) hypertension; Z79.01 Long term (current) use of anticoagulants; Z79.84 Long term (current) use of oral hypoglycemic drugs; Z86.73 Personal history of transient ischemic attack (TIA), and cerebral infarction without residual deficits; Z90.49 Acquired absence of other specified parts of digestive tract; G62.9 Polyneuropathy, unspecified; E87.6 Hypokalemia; E83.39 Other disorders of phosphorus metabolism
CPT/HCPCS: 36415; 80048-TC; 80053-TC; 83605-TC; 83690-TC; 83735-TC; 84100-TC; 84484-TC; 85025-TC; 85652-TC; 87040-TC; 93307-TC; A4223; G0378; J1171; J1815; J2270; J2405; J2543; J7030; J7060